=== PATIENT | male | born 1955 ===

== ENCOUNTER → 2018-01-15 14:05 | Outpatient (REF) | payer OTHER, MEDICAID, SELFPAY | LOC: LAB 14:05 | PROVIDERS: Visit Provider Otolaryngology Facial Plastic Surgery | DX: R22.1 Localized swelling, mass and lump, neck (principal); J35.1 Hypertrophy of tonsils; D49.0 Neoplasm of unspecified behavior of digestive system | CPT/HCPCS: 87070; 87205 ==